=== PATIENT | female | born 1965 | race Hispanic/Latino ===

== ENCOUNTER 2023-02-07 17:18 | Inpatient (IN) | payer SELFPAY ==
[~2023-02-07 17:18] MED LIST: Iopamidol-370 76% 500 ML MDV (1 ML CHARGE) ONE
[2023-02-07 17:51] LABS: #Monocytes 0.7 thou/uL (0.11-0.59); %Basophils 0.2 % (0.0-1.0); %Eosinophils 0.2 % (0.0-10.0); %Lymphocytes 11.5 % (21.0-51.0); %Monocytes 6.1 % (0.0-10.0); %Neutrophils 81.4 % (42.0-75.0); Hematocrit 27.5 % (36.0-47.0); Hemoglobin 8.2 g/dL (12.0-16.0); Mean Corpuscular HGB CONC 29.8 g/dL (32.0-36.0); Mean Corpuscular Hemoglobin 19.4 pg (27.0-31.0); Mean Corpuscular Volume 65.2 fl (78.0-98.0); Platelet Count 769 10x3/uL (130-400); RBC Distribution Width 19.5 % (11.5-14.5); Red Blood Cell (RBC) Count 4.22 mill/uL (4.20-5.40); White Blood Cell (WBC) Count 12.2 10x3/uL (4.8-10.8)
[2023-02-07 18:02] LABS: Bacteria/HPF 1+ HPF (None Seen); Bilirubin Negative (Negative); Blood, Urine 1+ (Negative); CAUTI Indications for Culture Dysuria,urgency,freq; Clarity Turbid (Clear); Glucose, Urine (Dipstick) Normal (Negative); Ketone, Urine Negative (Negative); Leukocyte 250 Leu/uL (Negative); Nitrite Negative (Negative); Protein, Urine (Dipstick) 30 mg/dL (Neg-Trace); Specific Gravity, Urine 1.017 (1.002-1.036); Squamous Epithelial 0-3 HPF (0-3); Urobilinogen Normal mg/dL (Less than 2); WBC/HPF 21-50 HPF (0-3); pH, Urine 5.5 (5.0-9.0)
[2023-02-07 18:03] LABS: Urine Culture Reflex Yes Yes
[2023-02-07] MEDS ORDERED: Ondansetron PF 4 MG/2 ML Vial ONE (18:15)
[2023-02-07 18:28] LABS: ALT (SGPT) 16 U/L (8-55); AST (SGOT) 24 U/L (5-34); Albumin 2.8 g/dL (3.5-5.0); Alkaline Phosphatase 104 U/L (40-110); Anion Gap 21 mmol/L (10-20); BUN (Urea Nitrogen) 9 mg/dL (9.8-20.1); Bilirubin, Total 0.2 mg/dL (0.2-1.2); Calc. Creatinine Clearance 0 mL/min (70-130); Calcium 8.7 mg/dL (7.8-10.44); Carbon Dioxide 17 mmol/L (22-29); Chloride 98 mmol/L (98-107); Estimated GFR 85; Globulin 4.5 g/dL (2.4-3.5); Glucose 200 mg/dL (70-105); Lipase 18 U/L (8-78); Potassium 3.5 mmol/L (3.5-5.1); Protein, Total 7.3 g/dL (6.0-8.3); Sodium 132 mmol/L (136-145)
[2023-02-07 18:40] LABS: Anisocytosis MODERATE=16-30 cells HPF (0-5); CellaVision Operator ID LAB.KB; Elliptocytes SLIGHT = 2-5 cells HPF (0-1); Hypochromia SLIGHT = 6-15 cells HPF (0-5); Microcytosis MODERATE=15-30 cells HPF (0-5); Platelet Adequacy Comment Platelets Increased; Poikilocytosis SLIGHT = 6-15 cells HPF (0-5); Polychromasia SLIGHT = 2-3 cells HPF (0-2)
[2023-02-07 18:49] LABS: Acetaminophen Less than 10 mcg/mL (10.0-30.0); Alcohol Less than 10.0 mg/dL (Less than 10); Salicylate Less than 8.0 mg/dL (15.0-30.0)
[2023-02-07] MEDS ORDERED: cefTRIAXone (ROCEPHIN) 1 GM VIAL ONE (20:36)
[2023-02-07] MEDS ORDERED: Sodium Chloride 0.9% 100 ML ONE (20:36)
[2023-02-07 21:11] LABS: Amphetamine Not Detected (NotDetected); Barbiturates Screen Not Detected (NotDetected); Benzodiazepine Screen Not Detected (NotDetected); Cocaine Metabolite Screen Not Detected (NotDetected); Methadone Not Detected (NotDetected); Methamphetamine Not Detected (NotDetected); Opiate Screen Not Detected (NotDetected); Oxycodone Screen Not Detected (NotDetected); Phencyclidine (PCP) Not Detected (NotDetected); THC/Cannabinoid Screen Not Detected (NotDetected); Tricyclic Screen Not Detected (NotDetected)
[2023-02-07] MEDS ORDERED: Acetaminophen 325 MG TAB PO PRN (23:30)
[2023-02-07] MEDS ORDERED: Ondansetron PF 4 MG/2 ML Vial IVP PRN (23:30)
[2023-02-07] MEDS ORDERED: Ondansetron ODT 4 MG TAB SL PRN (23:30)
[2023-02-08 02:05] VITALS: BMI 20.9
[2023-02-08] MEDS ORDERED: Ondansetron PF 4 MG/2 ML Vial IVP PRN (02:48)
[2023-02-08 05:38] LABS: #Eosinphils 0.1 thou/uL (0.0-0.7); #Monocytes 0.9 thou/uL (0.11-0.59); #Neutrophils 7.5 thou/uL (1.40-6.50); %Basophils 0.4 % (0.0-1.0); %Eosinophils 0.9 % (0.0-10.0); %Lymphocytes 13.5 % (21.0-51.0); %Monocytes 8.6 % (0.0-10.0); %Neutrophils 76.1 % (42.0-75.0); Hematocrit 22.4 % (36.0-47.0); Hemoglobin 6.7 g/dL (12.0-16.0); Mean Corpuscular HGB CONC 29.9 g/dL (32.0-36.0); Mean Corpuscular Hemoglobin 18.9 pg (27.0-31.0); Mean Corpuscular Volume 63.3 fl (78.0-98.0); Mean Platelet Volume 8.8 fL (7.4-10.4); RBC Distribution Width 19.1 % (11.5-14.5); Red Blood Cell (RBC) Count 3.54 mill/uL (4.20-5.40); White Blood Cell (WBC) Count 9.9 10x3/uL (4.8-10.8)
[2023-02-08 06:04] LABS: Platelet Count 531 10x3/uL (130-400)
[2023-02-08 06:05] LABS: ALT (SGPT) 13 U/L (8-55); AST (SGOT) 21 U/L (5-34); Albumin 2.1 g/dL (3.5-5.0); Alkaline Phosphatase 78 U/L (40-110); Anion Gap 13 mmol/L (10-20); BUN (Urea Nitrogen) 6 mg/dL (9.8-20.1); Bilirubin, Total 0.2 mg/dL (0.2-1.2); Calc. Creatinine Clearance 82 mL/min (70-130); Calcium 7.5 mg/dL (7.8-10.44); Carbon Dioxide 21 mmol/L (22-29); Chloride 104 mmol/L (98-107); Estimated GFR 107; Globulin 3.4 g/dL (2.4-3.5); Glucose 95 mg/dL (70-105); Potassium 2.9 mmol/L (3.5-5.1); Protein, Total 5.5 g/dL (6.0-8.3); Sodium 135 mmol/L (136-145)
[2023-02-08] MEDS ORDERED: Electrolyte Replacement Protocol 1 EACH FS SCH (07:30)
[2023-02-08 08:23] LABS: Hematocrit 22.3 % (36.0-47.0); Hemoglobin 6.8 g/dL (12.0-16.0); Platelet Count 541 10x3/uL (130-400)
[2023-02-08 08:38] LABS: INR-International Normal Ratio 1.5; PTT 39.4 sec (22.9-36.1); Prothrombin Time 18.5 sec (12.0-14.7)
[2023-02-08 08:44] LABS: Anion Gap 11 mmol/L (10-20); BUN (Urea Nitrogen) 5 mg/dL (9.8-20.1); Calc. Creatinine Clearance 77 mL/min (70-130); Calcium 7.9 mg/dL (7.8-10.44); Carbon Dioxide 22 mmol/L (22-29); Chloride 102 mmol/L (98-107); Estimated GFR 105; Glucose 92 mg/dL (70-105); Magnesium 1.4 mg/dL (1.6-2.6); Potassium 2.9 mmol/L (3.5-5.1); Sodium 132 mmol/L (136-145)
[2023-02-08] MEDS ORDERED: Famotidine 20 MG TAB PO SCH (09:00)
[2023-02-08] MEDS ORDERED: Magnesium 2 GM/50 ML(in water) 4 GM in Premix 1 BAG IVPB SCH (09:15)
[2023-02-08 10:11] LABS: Iron 12 ug/dL (50-170); Iron Binding Capacity, Total 74 mcg/dL (265-497)
[2023-02-08] MEDS: Famotidine/PF 20 mg/2ml Vial SLOW IVP SCH ×2 (10:18→21:26)
[2023-02-08] MEDS: cefTRIAXone\\ROCEPHIN 1 GM in Sodium Chloride 0.9% 100 ML IVPB SCH (10:22)
[2023-02-08] MEDS: Magnesium Sulfate In Water 4 GM in Premix 1 BAG IVPB SCH ×2 (10:53→11:08)
[2023-02-08] MEDS: Potassium Chloride 20 MEQ in Premix 1 BAG IVPB SCH ×2 (10:59→12:40)
[2023-02-08] MEDS ORDERED: Potassium Chloride 20 MEQ TAB PO SCH ×2 (11:30→18:30)
[2023-02-08] MEDS ORDERED: Iopamidol-370 76% 500 ML MDV (1 ML CHARGE) ONE (15:01)
[2023-02-08 17:03] LABS: Hematocrit 22.6 % (36.0-47.0)
[2023-02-08 17:30] LABS: Anion Gap 11 mmol/L (10-20); BUN (Urea Nitrogen) 5 mg/dL (9.8-20.1); Calc. Creatinine Clearance 81 mL/min (70-130); Carbon Dioxide 21 mmol/L (22-29); Chloride 100 mmol/L (98-107); Estimated GFR 106; Glucose 167 mg/dL (70-105); Magnesium 2.4 mg/dL (1.6-2.6); Potassium 3.6 mmol/L (3.5-5.1); Sodium 128 mmol/L (136-145)
[2023-02-09 05:39] LABS: #Eosinphils 0.1 thou/uL (0.0-0.7); #Monocytes 0.8 thou/uL (0.11-0.59); %Basophils 0.4 % (0.0-1.0); %Eosinophils 1.2 % (0.0-10.0); %Monocytes 8.6 % (0.0-10.0); %Neutrophils 74.3 % (42.0-75.0); Hematocrit 27.5 % (36.0-47.0); Hemoglobin 8.6 g/dL (12.0-16.0); Mean Corpuscular HGB CONC 31.3 g/dL (32.0-36.0); Mean Corpuscular Hemoglobin 21.1 pg (27.0-31.0); Mean Corpuscular Volume 67.6 fl (78.0-98.0); Mean Platelet Volume 8.6 fL (7.4-10.4); Platelet Count 558 10x3/uL (130-400); RBC Distribution Width 22.1 % (11.5-14.5); Red Blood Cell (RBC) Count 4.07 mill/uL (4.20-5.40); White Blood Cell (WBC) Count 9.5 10x3/uL (4.8-10.8)
[2023-02-09 06:09] LABS: Anisocytosis SLIGHT = 6-15 cells HPF (0-5); CellaVision Operator ID lab.abc; Hypochromia SLIGHT = 6-15 cells HPF (0-5); Microcytosis SLIGHT = 6-15 cells HPF (0-5); Platelet Adequacy Comment Platelets Increased; Polychromasia SLIGHT = 2-3 cells HPF (0-2)
[2023-02-09 06:16] LABS: ALT (SGPT) 11 U/L (8-55); AST (SGOT) 14 U/L (5-34); Albumin 2.2 g/dL (3.5-5.0); Alkaline Phosphatase 80 U/L (40-110); Anion Gap 10 mmol/L (10-20); BUN (Urea Nitrogen) 5 mg/dL (9.8-20.1); Bilirubin, Total 0.4 mg/dL (0.2-1.2); Calc. Creatinine Clearance 78 mL/min (70-130); Calcium 7.7 mg/dL (7.8-10.44); Carbon Dioxide 23 mmol/L (22-29); Chloride 101 mmol/L (98-107); Estimated GFR 105; Globulin 3.5 g/dL (2.4-3.5); Glucose 111 mg/dL (70-105); Magnesium 1.7 mg/dL (1.6-2.6); Potassium 3.7 mmol/L (3.5-5.1); Protein, Total 5.7 g/dL (6.0-8.3); Sodium 130 mmol/L (136-145)
[2023-02-09 06:53] LABS: HIV (1/2) Antibody/Antigen Non-Reactive (NonReactive); HIV 1/2 INDEX 0.29 S/CO (<1.00)
[2023-02-09 07:12] LABS: Vitamin B12 Greater than 2000 pg/mL (211-911)
[2023-02-09] MEDS ORDERED: Magnesium 2 GM/50 ML(in water) 2 GM in Premix 1 BAG IVPB SCH (08:00)
[2023-02-09] MEDS: cefTRIAXone\\ROCEPHIN 1 GM in Sodium Chloride 0.9% 100 ML IVPB SCH (08:24)
[2023-02-09] MEDS: Famotidine/PF 20 mg/2ml Vial SLOW IVP SCH ×2 (08:24→20:30)
[2023-02-09 11:26] LABS: Campy jejuni + coli by PCR Negative (Negative); STEC Shiga Toxin 1+2 Negative (Negative); Salmonella spp. by PCR Negative (Negative); Shigella spp + EIEC by PCR Negative (Negative)
[2023-02-09] MEDS ORDERED: Dextrose 5% in Water 1,000 ML IV PRN (23:25)
[2023-02-09] MEDS ORDERED: Dextrose 50% Abboject 50 ML SYRINGE SLOW IVP PRN (23:25)
[2023-02-09] MEDS ORDERED: Glucagon 1 MG/ML KIT IM PRN (23:25)
[2023-02-09] MEDS: HumaLOG 300 UNITS/3 ML VIAL SC PRN (23:37)
[2023-02-10 07:49] LABS: #Eosinphils 0.1 thou/uL (0.0-0.7); #Monocytes 0.8 thou/uL (0.11-0.59); #Neutrophils 7.1 thou/uL (1.40-6.50); %Basophils 0.3 % (0.0-1.0); %Eosinophils 0.7 % (0.0-10.0); %Lymphocytes 14.9 % (21.0-51.0); %Monocytes 8.7 % (0.0-10.0); Hematocrit 26.6 % (36.0-47.0); Hemoglobin 8.3 g/dL (12.0-16.0); Mean Corpuscular HGB CONC 31.2 g/dL (32.0-36.0); Mean Corpuscular Hemoglobin 21.2 pg (27.0-31.0); Mean Corpuscular Volume 67.9 fl (78.0-98.0); Mean Platelet Volume 8.6 fL (7.4-10.4); Platelet Count 513 10x3/uL (130-400); RBC Distribution Width 22.5 % (11.5-14.5); Red Blood Cell (RBC) Count 3.92 mill/uL (4.20-5.40); White Blood Cell (WBC) Count 9.5 10x3/uL (4.8-10.8)
[2023-02-10 08:16] LABS: ALT (SGPT) 11 U/L (8-55); AST (SGOT) 17 U/L (5-34); Albumin 2.2 g/dL (3.5-5.0); Alkaline Phosphatase 76 U/L (40-110); Anion Gap 12 mmol/L (10-20); BUN (Urea Nitrogen) 7 mg/dL (9.8-20.1); Bilirubin, Total 0.3 mg/dL (0.2-1.2); Calc. Creatinine Clearance 79 mL/min (70-130); Calcium 7.9 mg/dL (7.8-10.44); Carbon Dioxide 24 mmol/L (22-29); Chloride 100 mmol/L (98-107); Estimated GFR 106; Globulin 3.5 g/dL (2.4-3.5); Glucose 123 mg/dL (70-105); Magnesium 1.5 mg/dL (1.6-2.6); Potassium 3.8 mmol/L (3.5-5.1); Protein, Total 5.7 g/dL (6.0-8.3); Sodium 132 mmol/L (136-145)
[2023-02-10 08:47] LABS: CellaVision Operator ID LAB.GE; Hypochromia SLIGHT = 6-15 cells HPF (0-5); Large Platelets 2.9 % (0-5); Microcytosis MODERATE=15-30 cells HPF (0-5); Ovalocytes SLIGHT = 2-5 cells HPF (0-1); Platelet Adequacy Comment Platelets Increased; Polychromasia SLIGHT = 2-3 cells HPF (0-2)
[2023-02-10] MEDS ORDERED: Magnesium 2 GM/50 ML(in water) 2 GM in Premix 1 BAG IVPB SCH (09:00)
[2023-02-10] MEDS: Famotidine/PF 20 mg/2ml Vial SLOW IVP SCH ×2 (09:00→21:06)
[2023-02-10] MEDS: cefTRIAXone\\ROCEPHIN 1 GM in Sodium Chloride 0.9% 100 ML IVPB SCH (09:00)
[2023-02-10] MEDS: HumaLOG 300 UNITS/3 ML VIAL SC PRN ×2 (13:55→18:47)
[2023-02-10] MEDS: Isoniazid 100 MG TAB PO SCH (21:07)
[2023-02-10] MEDS: Ethambutol HCl 400 MG TAB PO SCH (21:07)
[2023-02-10] MEDS: Pyrazinamide 500 MG TAB PO SCH (21:07)
[2023-02-10] MEDS: Rifampin 150 MG CAP PO SCH (21:08)
[2023-02-11 06:11] LABS: #Neutrophils 8.3 thou/uL (1.40-6.50); %Basophils 0.4 % (0.0-1.0); %Eosinophils 0.2 % (0.0-10.0); %Lymphocytes 10.6 % (21.0-51.0); %Monocytes 9.2 % (0.0-10.0); %Neutrophils 78.9 % (42.0-75.0); Hematocrit 26.1 % (36.0-47.0); Hemoglobin 8.2 g/dL (12.0-16.0); Mean Corpuscular HGB CONC 31.4 g/dL (32.0-36.0); Mean Corpuscular Hemoglobin 21.2 pg (27.0-31.0); Mean Corpuscular Volume 67.6 fl (78.0-98.0); Mean Platelet Volume 8.5 fL (7.4-10.4); Platelet Count 489 10x3/uL (130-400); RBC Distribution Width 22.7 % (11.5-14.5); Red Blood Cell (RBC) Count 3.86 mill/uL (4.20-5.40); White Blood Cell (WBC) Count 10.6 10x3/uL (4.8-10.8)
[2023-02-11 06:38] LABS: ALT (SGPT) 15 U/L (8-55); AST (SGOT) 24 U/L (5-34); Albumin 2.4 g/dL (3.5-5.0); Alkaline Phosphatase 99 U/L (40-110); Anion Gap 11 mmol/L (10-20); BUN (Urea Nitrogen) 8 mg/dL (9.8-20.1); Calc. Creatinine Clearance 82 mL/min (70-130); Calcium 8.2 mg/dL (7.8-10.44); Carbon Dioxide 24 mmol/L (22-29); Chloride 102 mmol/L (98-107); Estimated GFR 107; Globulin 3.6 g/dL (2.4-3.5); Glucose 114 mg/dL (70-105); Magnesium 1.8 mg/dL (1.6-2.6); Potassium 3.6 mmol/L (3.5-5.1); Sodium 133 mmol/L (136-145)
[2023-02-11] MEDS ORDERED: Magnesium 2 GM/50 ML(in water) 2 GM in Premix 1 BAG IVPB SCH (08:00)
[2023-02-11] MEDS: cefTRIAXone\\ROCEPHIN 1 GM in Sodium Chloride 0.9% 100 ML IVPB SCH (09:27)
[2023-02-11] MEDS: Famotidine/PF 20 mg/2ml Vial SLOW IVP SCH ×2 (09:27→22:20)
[2023-02-11] MEDS: HumaLOG 300 UNITS/3 ML VIAL SC PRN (11:55)
[2023-02-11] MEDS: Rifampin 150 MG CAP PO SCH (22:21)
[2023-02-11] MEDS: Ethambutol HCl 400 MG TAB PO SCH (22:21)
[2023-02-11] MEDS: Pyrazinamide 500 MG TAB PO SCH (22:21)
[2023-02-11] MEDS: Isoniazid 100 MG TAB PO SCH (22:21)
[2023-02-12 04:37] LABS: QuantiFERON-TB Gold Plus POSITIVE (Negative)
[2023-02-12] MEDS ORDERED: Magnesium 2 GM/50 ML(in water) 2 GM in Premix 1 BAG IVPB SCH (08:00)
[2023-02-12] MEDS: cefTRIAXone\\ROCEPHIN 1 GM in Sodium Chloride 0.9% 100 ML IVPB SCH (09:01)
[2023-02-12] MEDS: Famotidine/PF 20 mg/2ml Vial SLOW IVP SCH ×2 (09:01→20:59)
[2023-02-12] MEDS: HumaLOG 300 UNITS/3 ML VIAL SC PRN (17:55)
[2023-02-12] MEDS: Benzonatate 100 MG CAP PO SCH (20:58)
[2023-02-12] MEDS: Atorvastatin Calcium 20 MG TAB PO SCH (20:58)
[2023-02-12] MEDS: Rifampin 150 MG CAP PO SCH (20:59)
[2023-02-12] MEDS: Isoniazid 100 MG TAB PO SCH (20:59)
[2023-02-12] MEDS: guaiFENesin ER 600 MG TAB PO SCH (20:59)
[2023-02-12] MEDS: Ethambutol HCl 400 MG TAB PO SCH (20:59)
[2023-02-12] MEDS: Pyrazinamide 500 MG TAB PO SCH (20:59)
[2023-02-13 07:03] LABS: Magnesium 1.9 mg/dL (1.6-2.6)
[2023-02-13] MEDS ORDERED: Magnesium 2 GM/50 ML(in water) 2 GM in Premix 1 BAG IVPB SCH (08:00)
[2023-02-13] MEDS: cefTRIAXone\\ROCEPHIN 1 GM in Sodium Chloride 0.9% 100 ML IVPB SCH (10:57)
[2023-02-13] MEDS: Alogliptin 25 MG TAB PO SCH (10:58)
[2023-02-13] MEDS: Ferrous Sulfate 325 MG TAB PO SCH (10:58)
[2023-02-13] MEDS: Benzonatate 100 MG CAP PO SCH ×3 (10:58→20:08)
[2023-02-13] MEDS: Famotidine/PF 20 mg/2ml Vial SLOW IVP SCH ×2 (10:59→20:06)
[2023-02-13] MEDS: guaiFENesin ER 600 MG TAB PO SCH ×2 (10:59→20:06)
[2023-02-13] MEDS: HumaLOG 300 UNITS/3 ML VIAL SC PRN (18:54)
[2023-02-13] MEDS: Atorvastatin Calcium 20 MG TAB PO SCH (20:06)
[2023-02-13] MEDS: Ethambutol HCl 400 MG TAB PO SCH (20:07)
[2023-02-13] MEDS: Pyrazinamide 500 MG TAB PO SCH (20:07)
[2023-02-13] MEDS: Isoniazid 100 MG TAB PO SCH (20:08)
[2023-02-13] MEDS: Rifampin 150 MG CAP PO SCH (20:09)
[2023-02-13] MEDS: Cholestyramine/Aspartame 4 gm Packet PO SCH (20:11)
[2023-02-14 06:54] LABS: #Basophils 0.1 thou/uL (0.0-0.2); #Eosinphils 0.3 thou/uL (0.0-0.7); #Monocytes 0.4 thou/uL (0.11-0.59); #Neutrophils 4.1 thou/uL (1.40-6.50); %Basophils 0.8 % (0.0-1.0); %Eosinophils 4.9 % (0.0-10.0); %Lymphocytes 24.9 % (21.0-51.0); %Monocytes 6.6 % (0.0-10.0); %Neutrophils 62.2 % (42.0-75.0); Hematocrit 27.4 % (36.0-47.0); Hemoglobin 8.2 g/dL (12.0-16.0); Mean Corpuscular HGB CONC 29.9 g/dL (32.0-36.0); Mean Corpuscular Hemoglobin 20.8 pg (27.0-31.0); Mean Corpuscular Volume 69.4 fl (78.0-98.0); Platelet Count 564 10x3/uL (130-400); RBC Distribution Width 23.9 % (11.5-14.5); Red Blood Cell (RBC) Count 3.95 mill/uL (4.20-5.40); White Blood Cell (WBC) Count 6.5 10x3/uL (4.8-10.8)
[2023-02-14 07:23] LABS: ALT (SGPT) 10 U/L (8-55); AST (SGOT) 15 U/L (5-34); Albumin 2.5 g/dL (3.5-5.0); Alkaline Phosphatase 112 U/L (40-110); Anion Gap 9 mmol/L (10-20); BUN (Urea Nitrogen) 9 mg/dL (9.8-20.1); Bilirubin, Total 0.2 mg/dL (0.2-1.2); Calc. Creatinine Clearance 74 mL/min (70-130); Calcium 8.5 mg/dL (7.8-10.44); Carbon Dioxide 24 mmol/L (22-29); Chloride 107 mmol/L (98-107); Estimated GFR 104; Globulin 3.7 g/dL (2.4-3.5); Glucose 114 mg/dL (70-105); Magnesium 1.9 mg/dL (1.6-2.6); Protein, Total 6.2 g/dL (6.0-8.3); Sodium 136 mmol/L (136-145)
[2023-02-14] MEDS ORDERED: Magnesium 2 GM/50 ML(in water) 2 GM in Premix 1 BAG IVPB SCH (08:00)
[2023-02-14] MEDS: guaiFENesin ER 600 MG TAB PO SCH ×2 (08:45→20:10)
[2023-02-14] MEDS: Alogliptin 25 MG TAB PO SCH (08:45)
[2023-02-14] MEDS: Ferrous Sulfate 325 MG TAB PO SCH (08:45)
[2023-02-14] MEDS: Benzonatate 100 MG CAP PO SCH ×3 (08:45→20:10)
[2023-02-14] MEDS: Famotidine/PF 20 mg/2ml Vial SLOW IVP SCH ×2 (08:46→20:10)
[2023-02-14] MEDS: Cholestyramine/Aspartame 4 gm Packet PO SCH ×2 (09:43→21:02)
[2023-02-14] MEDS: HumaLOG 300 UNITS/3 ML VIAL SC PRN ×3 (13:35→21:13)
[2023-02-14] MEDS: Atorvastatin Calcium 20 MG TAB PO SCH (20:10)
[2023-02-14] MEDS: Ethambutol HCl 400 MG TAB PO SCH (20:11)
[2023-02-14] MEDS: Isoniazid 100 MG TAB PO SCH (20:11)
[2023-02-14] MEDS: Pyrazinamide 500 MG TAB PO SCH (20:11)
[2023-02-14] MEDS ORDERED: Acetaminophen 500 MG TAB PO SCH (20:30)
[2023-02-14] MEDS ORDERED: Acetaminophen 500 MG TAB PO PRN (20:32)
[2023-02-14] MEDS ORDERED: Ibuprofen 200 MG TAB PO PRN (20:32)
[2023-02-14] MEDS ORDERED: Sodium Chloride 0.9% 500 ML IV SCH ×3 (20:45→23:00)
[2023-02-14] MEDS ORDERED: Ibuprofen 200 MG TAB PO SCH (20:45)
[2023-02-14] MEDS: Rifampin 150 MG CAP PO SCH (21:02)
[2023-02-15 09:07] LABS: #Basophils 0.1 thou/uL (0.0-0.2); #Eosinphils 0.2 thou/uL (0.0-0.7); #Monocytes 0.5 thou/uL (0.11-0.59); #Neutrophils 7.8 thou/uL (1.40-6.50); %Basophils 0.7 % (0.0-1.0); %Eosinophils 1.6 % (0.0-10.0); %Lymphocytes 16.1 % (21.0-51.0); %Monocytes 5.1 % (0.0-10.0); %Neutrophils 75.8 % (42.0-75.0); Hematocrit 27.1 % (36.0-47.0); Hemoglobin 8.2 g/dL (12.0-16.0); Mean Corpuscular HGB CONC 30.3 g/dL (32.0-36.0); Mean Corpuscular Hemoglobin 21.5 pg (27.0-31.0); Mean Corpuscular Volume 70.9 fl (78.0-98.0); Mean Platelet Volume 8.5 fL (7.4-10.4); Platelet Count 480 10x3/uL (130-400); RBC Distribution Width 24.3 % (11.5-14.5); Red Blood Cell (RBC) Count 3.82 mill/uL (4.20-5.40); White Blood Cell (WBC) Count 10.3 10x3/uL (4.8-10.8)
[2023-02-15] MEDS: Famotidine/PF 20 mg/2ml Vial SLOW IVP SCH (09:22)
[2023-02-15] MEDS: Ferrous Sulfate 325 MG TAB PO SCH (09:22)
[2023-02-15] MEDS: Cholestyramine/Aspartame 4 gm Packet PO SCH (09:22)
[2023-02-15] MEDS: Alogliptin 25 MG TAB PO SCH (09:22)
[2023-02-15] MEDS: Benzonatate 100 MG CAP PO SCH (09:22)
[2023-02-15] MEDS: guaiFENesin ER 600 MG TAB PO SCH (09:22)
[2023-02-15 10:01] LABS: CellaVision Operator ID LAB.GE; Hypochromia MODERATE=16-30 cells HPF (0-5); Microcytosis MODERATE=15-30 cells HPF (0-5); Ovalocytes SLIGHT = 2-5 cells HPF (0-1); Platelet Adequacy Comment Platelets Increased; Polychromasia MODERATE = 3-4 cells HPF (0-2)
[2023-02-15 10:16] LABS: Anion Gap 11 mmol/L (10-20); BUN (Urea Nitrogen) 8 mg/dL (9.8-20.1); Calc. Creatinine Clearance 88 mL/min (70-130); Calcium 8.5 mg/dL (7.8-10.44); Carbon Dioxide 19 mmol/L (22-29); Estimated GFR 108; Glucose 104 mg/dL (70-105); Magnesium 1.9 mg/dL (1.6-2.6); Potassium 3.9 mmol/L (3.5-5.1)
[2023-02-15] MEDS ORDERED: Magnesium 2 GM/50 ML(in water) 2 GM in Premix 1 BAG IVPB SCH (11:00)
[2023-02-15 12:38] LABS: Chloride 114 mmol/L (98-107); Sodium 140 mmol/L (136-145)
[2023-02-15] MEDS: Ethambutol HCl 400 MG TAB PO SCH (13:20)
[2023-02-15] MEDS: Rifampin 150 MG CAP PO SCH (13:24)
[2023-02-15] MEDS: Pyrazinamide 500 MG TAB PO SCH (13:25)
[2023-02-15] MEDS: Isoniazid 100 MG TAB PO SCH (13:25)
[2023-02-15 13:36] VITALS: BP 108/69; TEMP 97.6
== END 2023-02-15 14:31 | disposition home or self-care (01) | DRG 178 ==
LOC: ERS 17:18 → 2SW 23:24 → T4-A 02-09 18:50
PROVIDERS: ADMIT Student in an Organized Health Care Education/Training Program; ATTEND Hospitalist
PROC: 30233N1 Transfusion of Nonautologous Red Blood Cells into Peripheral Vein, Percutaneous Approach (ICD-10-PCS; principal; 2023-02-07)
DX: A15.0 Tuberculosis of lung (principal); E87.1 Hypo-osmolality and hyponatremia; N39.0 Urinary tract infection, site not specified; Z51.5 Encounter for palliative care; D50.9 Iron deficiency anemia, unspecified; B96.20 Unspecified Escherichia coli [E. coli] as the cause of diseases classified elsewhere; E11.9 Type 2 diabetes mellitus without complications; G47.33 Obstructive sleep apnea (adult) (pediatric); R50.9 Fever, unspecified; F32.A Depression, unspecified; R91.8 Other nonspecific abnormal finding of lung field; E78.00 Pure hypercholesterolemia, unspecified; R63.4 Abnormal weight loss; R51.9 Headache, unspecified; H54.7 Unspecified visual loss; K52.9 Noninfective gastroenteritis and colitis, unspecified; R91.1 Solitary pulmonary nodule; T14.91XD Suicide attempt, subsequent encounter; T50.902D Poisoning by unspecified drugs, medicaments and biological substances, intentional self-harm, subsequent encounter; Z68.21 Body mass index [BMI] 21.0-21.9, adult; Z80.0 Family history of malignant neoplasm of digestive organs
CPT/HCPCS: 36415; 36416; 36430; 70553; 71045; 71275; 74177; 80048; 80053; 80306; 80307; 81001; 82274; 82378; 82533; 82607; 82728; 83540; 83550; 83630; 83690; 83735; 84443; 85025; 85046; 85610; 85730; 86304; 86480; 86850; 86900; 86901; 87040; 87070; 87077; 87086; 87116; 87186; 87205; 87206; 87324; 87389; 87449; 87505; 93005; 93010; 93970; 96365; 96375; J0696; J1815; J2405; J3475; J3480; J3490; J7030; P9016; Q9967; S0028

== ENCOUNTER 2023-05-03 12:44 | Emergency (ER) | payer OTHER ==
[2023-05-03] MEDS ORDERED: Albuterol 200 PUFF (6.7GM INHALER) ONE (13:44)
[2023-05-03 13:52] LABS: #Eosinphils 0.3 thou/uL (0.0-0.7); #Monocytes 0.6 thou/uL (0.11-0.59); %Basophils 0.5 % (0.0-1.0); %Eosinophils 4.5 % (0.0-10.0); %Lymphocytes 17.8 % (21.0-51.0); %Monocytes 9.8 % (0.0-10.0); %Neutrophils 67.2 % (42.0-75.0); Hematocrit 33.5 % (36.0-47.0); Hemoglobin 10.8 g/dL (12.0-16.0); Mean Corpuscular HGB CONC 32.2 g/dL (32.0-36.0); Mean Corpuscular Hemoglobin 25.8 pg (27.0-31.0); Mean Corpuscular Volume 80.1 fl (78.0-98.0); Mean Platelet Volume 9.5 fL (7.4-10.4); Platelet Count 314 10x3/uL (130-400); Red Blood Cell (RBC) Count 4.18 mill/uL (4.20-5.40)
[2023-05-03] MEDS ORDERED: Aspirin Chewable 81 MG TAB ONE (14:08)
[2023-05-03 14:10] LABS: ALT (SGPT) 11 U/L (8-55); AST (SGOT) 12 U/L (5-34); Albumin 3.9 g/dL (3.5-5.0); Alkaline Phosphatase 87 U/L (40-110); Anion Gap 16 mmol/L (10-20); BUN (Urea Nitrogen) 15 mg/dL (9.8-20.1); Bilirubin, Total Less than 0.2 mg/dL (0.2-1.2); Calc. Creatinine Clearance 0 mL/min (70-130); Calcium 9.2 mg/dL (7.8-10.44); Carbon Dioxide 21 mmol/L (22-29); Chloride 103 mmol/L (98-107); Estimated GFR 79; Globulin 4.2 g/dL (2.4-3.5); Glucose 167 mg/dL (70-105); Lipase 62 U/L (8-78); Potassium 4.5 mmol/L (3.5-5.1); Protein, Total 8.1 g/dL (6.0-8.3); Sodium 135 mmol/L (136-145)
[2023-05-03 14:12] LABS: Troponin I Less than 0.010 ng/mL (< 0.028)
[2023-05-03 18:19] LABS: Troponin I Less than 0.010 ng/mL (< 0.028)
== END 2023-05-03 19:16 | disposition home or self-care (01) ==
LOC: ERS 12:44
DX: R06.02 Shortness of breath (principal); A15.0 Tuberculosis of lung; E11.9 Type 2 diabetes mellitus without complications; Z79.4 Long term (current) use of insulin
CPT/HCPCS: 36415; 71275; 80053; 83690; 83880; 84484; 85025; 85379; 93005; 94760; Q9967